=== PATIENT | female | born 1970 | race Caucasian/White ===

== ENCOUNTER 2017-10-18 01:59 | Emergency (ER) | payer OTHER ==
--- NOTE | 2017-10-18 02:09 | ED Physician Documentation ---
History of Present Illness - Stated complaint Stated Complaint: CHEST PX - History obtained from History obtained from: Patient - Additonal information Additional information: 47-year-old female presents the emergency department with complaints of sharp intermittent chest pain for the past several weeks. The patient reports increasing episodes over the past several days. The patient reports a sharp pain that last no longer than 1 minute and occasionally radiates into her arm. The patient denies diaphoresis or nausea. The patient denies dyspnea on exertion, URI symptoms, fever cough. No new injury. Currently, the patient has no active symptoms. The patient denies abdominal pain. Symptoms are described as moderate when they occur and currently has no pain. No triggering factors. 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 10/30/14 Solifenacin Succinate [Vesicare] 10/30/14 10/30/14 - Allergies Allergies/Adverse Reactions: Allergies Allergy/AdvReac Type Severity Reaction Status Date / Time Sulfa (Sulfonamide Allergy Hives Verified 06/05/15 11:41 Antibiotics) tetracycline [Tetracycline] Allergy dizzy Verified 07/15/14 11:41 - Social History Does the pt smoke?: No Smoking Status: Former smoker Does the pt drink ETOH?: No Does the pt have substance abuse?: No - Immunizations Immunizations are current?: Yes PD ED PE NORMAL - General General: Alert and oriented X 3, No acute distress - HEENT HEENT: Atraumatic, PERRL, EOMI, Ears normal - Neck Neck: No JVD - Cardiac Cardiac: RRR - Respiratory Respiratory: No respiratory distress, Clear bilaterally - Abdomen Abdomen: Soft, Non tender, Non distended - Derm Derm: Normal color - Extremities Extremities: No deformity, No edema - Neuro Neuro: Alert and oriented X 3, No motor deficit - Psych Psych: Normal mood Results - Vitals Vitals: Vital Signs - 24 hr 10/18/17 10/18/17 10/18/17 02:05 02:24 02:36 Temperature 37.1 C Heart Rate 84 90 Respiratory 18 16 16 Rate Blood Pressure 148/93 H 148/93 H O2 Saturation 98 99 10/18/17 10/18/17 10/18/17 02:37 03:18 03:34 Temperature Heart Rate 84 81 Respiratory 16 17 16 Rate Blood Pressure 121/78 118/80 O2 Saturation 98 97 10/18/17 10/18/17 10/18/17 04:22 04:35 05:18 Temperature Heart Rate 75 82 79 Respiratory 14 16 14 Rate Blood Pressure 111/83 H 109/78 O2 Saturation 98 98 98 Oxygen O2 Source Room air - EKG (time done) 02:06 Rate: Rate (enter#) Rhythm: NSR Intervals: Normal CO, QRS normal Ischemia: Normal ST segments - Labs Labs: Laboratory Tests 10/18/17 10/18/17 10/18/17 02:10 02:10 02:10 WBC 7.3 RBC 4.83 Hgb 15.3 Hct 43.6 MCV 90.2 MCH 31.6 H MCHC 35.0 RDW 12.8 Plt Count 238 MPV 8.2 Neut # (Auto) 3.7 Lymph # (Auto) 2.9 [place] # (Auto) 0.5 Eos # (Auto) 0.1 Baso # (Auto) 0.1 Absolute Nucleated RBC 0.00 Nucleated RBC % 0.0 D-Dimer Sodium 139 Potassium 3.4 L Chloride 103 Carbon Dioxide 27 Anion Gap 9.0 BUN 15 Creatinine 0.9 Estimated GFR (MDRD) 67 L Glucose 100 Calcium 9.0 Total Bilirubin 0.6 AST 26 ALT 26 Alkaline Phosphatase 65 Troponin I < 0.04 Total Protein 7.3 Albumin 4.4 Globulin 2.9 Albumin/Globulin Ratio 1.5 Lipase 42 10/18/17 10/18/17 02:10 05:55 WBC RBC Hgb Hct MCV MCH MCHC RDW Plt Count MPV Neut # (Auto) Lymph # (Auto) [place] # (Auto) Eos # (Auto) Baso # (Auto) Absolute Nucleated RBC Nucleated RBC % D-Dimer 128.6 L Sodium Potassium Chloride Carbon Dioxide Anion Gap BUN Creatinine Estimated GFR (MDRD) Glucose Calcium Total Bilirubin AST ALT Alkaline Phosphatase Troponin I < 0.04 Total Protein Albumin Globulin Albumin/Globulin Ratio Lipase - Rads (name of study) CXR Radiology: Final report received (1. No acute abnormality seen in the chest. ) PD MEDICAL DECISION MAKING - ED course ED course: The case was discussed with the hospitalist, unfortunately our facility is unable to perform a stress test over the weekend. I discussed this with the patient and she is already been in contact with her primary care last week and is in the process of getting set up for a stress test. The patient is in the low risk category per the heart score so she appears appropriate for discharge and ongoing outpatient management. The patient's workup in the emergency department does not reveal a clear etiology for the source of her symptoms. The patient is comfortable with this plan for outpatient workup. I discussed warning signs and recommended returning to the emergency department immediately for worsening or any concerns. - Sepsis Event Vital Signs: Vital Signs - 24 hr 10/18/17 10/18/17 10/18/17 02:05 02:24 02:36 Temperature 37.1 C Heart Rate 84 90 Respiratory 18 16 16 Rate Blood Pressure 148/93 H 148/93 H O2 Saturation 98 99 10/18/17 10/18/17 10/18/17 02:37 03:18 03:34 Temperature Heart Rate 84 81 Respiratory 16 17 16 Rate Blood Pressure 121/78 118/80 O2 Saturation 98 97 10/18/17 10/18/17 10/18/17 04:22 04:35 05:18 Temperature Heart Rate 75 82 79 Respiratory 14 16 14 Rate Blood Pressure 111/83 H 109/78 O2 Saturation 98 98 98 Oxygen O2 Source Room air Departure - Departure Disposition: Home, Self Care Clinical Impression: Chest pain Qualifiers: Chest pain type: unspecified Qualified Code(s): R07.9 - Chest pain, unspecified Condition: Good Instructions: ED Chest Pain [facility] Follow-Up: Boby García MD [Primary Care Provider] - (Please follow-up with your primary care physician on Friday. Please ask your primary care physician to arrange for an outpatient stress test and echocardiogram.) Comments: Please return to the emergency department immediately for worsening symptoms or any concerns
[2017-10-18 02:20] LABS: BASOPHILS # (AUTO) 0.1 10^3/uL (0.0-0.1); EOSINOPHILS # (AUTO) 0.1 10^3/uL (0.0-0.7); EOSINOPHILS % (AUTO) 1.8 %; HGB - HEMOGLOBIN 15.3 g/dL (12.0-16.0); LYMPHOCYTES # (AUTO) 2.9 10^3/uL (1.5-3.5); LYMPHOCYTES % (AUTO) 39.7 %; MEAN CORPUSCULAR HEMOGLOBIN 31.6 pg (27.0-31.0); MEAN CORPUSCULAR VOLUME 90.2 fL (81.0-99.0); MEAN PLATELET VOLUME 8.2 fL (7.9-10.8); MONOCYTES # (AUTO) 0.5 10^3/uL (0.0-1.0); MONOCYTES % (AUTO) 6.7 %; NEUTROPHILS # (AUTO) 3.7 10^3/uL (1.5-6.6); NEUTROPHILS % (AUTO) 50.8 %; PLT - PLATELET COUNT 238 10^3/uL (130-450); RED BLOOD COUNT 4.83 10^6/uL (4.20-5.40); RED CELL DISTRIBUTION WIDTH 12.8 % (12.0-15.0); WHITE BLOOD COUNT 7.3 x10^3/uL (4.8-10.8)
[2017-10-18 02:32] LABS: ALBUMIN 4.4 g/dL (3.2-5.5); ALBUMIN/GLOBULIN RATIO 1.5 (1.0-2.2); BILIRUBIN,TOTAL 0.6 mg/dL (0.2-1.0); CREATININE 0.9 mg/dL (0.4-1.0); TOTAL PROTEIN 7.3 g/dL (6.7-8.2)
--- NOTE | 2017-10-18 03:39 | XRAY Report ---
Reason: CP Procedure Date: 10/18/2017 Accession Number: [id number] / [id number] Procedure: XR - Chest 2 View X-Ray CPT Code: 50180 FULL RESULT: EXAM: CHEST RADIOGRAPHY EXAM DATE: 10/18/2017 03:10 AM. CLINICAL HISTORY: Chest pain. COMPARISON: 06/24/2014. TECHNIQUE: 2 views. FINDINGS: Lungs/Pleura: No alveolar consolidation or pleural effusion seen. No pneumothorax. Mediastinum: Heart and mediastinal contours are unremarkable. Other: Mild thoracolumbar scoliosis. IMPRESSION: 1. No acute abnormality seen in the chest. RADIA
[2017-10-18 06:27] VITALS: BP 109/74
== END 2017-10-18 06:27 | disposition home or self-care (01) ==
LOC: ED 01:59
DX: R07.9 Chest pain, unspecified (principal); Z87.891 Personal history of nicotine dependence
CPT/HCPCS: 36415; 71046; 80053; 83690; 84484; 85025; 85379; 93005; 99283; 99284

== ENCOUNTER 2020-04-12 14:55 | Outpatient (CLI) | payer OTHER ==
--- NOTE | 2020-04-13 09:07 | Ultrasound Report ---
PROCEDURE: Carotid Doppler Complete INDICATIONS: HYPERLIPIDEMIA, SYNCOPE AND COLLAPSE TECHNIQUE: Color and pulse Doppler interrogation was performed of both carotid systems, with image documentation and velocity measurements. COMPARISON: 06/15/2010 FINDINGS: Right side: Brachial blood pressure: 117/65 mm Hg. Common carotid artery peak systolic velocity: 19.6 cm/sec. Internal carotid artery peak systolic velocity: 8 cm/sec. Internal carotid artery end diastolic velocity: 26.9 cm/sec. External carotid artery peak systolic velocity: 69.2 cm/sec. ICA/CCA peak systolic ratio: 0.7 . Cameron scale imaging description: Minimal plaque at the bifurcation and origin of the internal carotid artery Percent internal carotid artery stenosis: Minimal. Vertebral artery: Flow direction is antegrade. Left side: Brachial blood pressure: 113/73 mm Hg. Common carotid artery peak systolic velocity: 86.0 cm/sec. Internal carotid artery peak systolic velocity: 79.6 cm/sec. Internal carotid artery end diastolic velocity: 26.5 cm/sec. External carotid artery peak systolic velocity: 88.8 cm/sec. ICA/CCA peak systolic ratio: 0.9 . Cameron scale imaging description: Minimal plaque in the bifurcation and origin of the internal carotid artery Percent internal carotid artery stenosis: Minimal. Vertebral artery: Flow direction is antegrade. IMPRESSION: Minimal atherosclerotic plaque at the carotid bifurcations. No hemodynamically significant stenosis. No significant progression compared with prior study. The estimate of stenosis included in the report of the imaging study was calculated using the NASCET method Reviewed by: Bereket Mendez MD on 04/13/2020 9:05 AM PST Approved by: Bereket Mendez MD on 04/13/2020 9:05 AM PST Station ID: [id number]
== END 2020-04-12 14:56 | disposition home or self-care (01) ==
LOC: DI 14:55
PROVIDERS: ATTEND Internal Medicine
DX: R55 Syncope and collapse (principal); E78.5 Hyperlipidemia, unspecified
CPT/HCPCS: 93880

== ENCOUNTER 2022-09-19 16:55 | Outpatient (CLI) | payer OTHER | END 2022-09-19 16:56 | disposition short-term general hospital (02) | LOC: EMS 16:55 | DX: M54.50 Low back pain, unspecified (principal); V49.50XA Passenger injured in collision with unspecified motor vehicles in traffic accident, initial encounter; Y92.413 State road as the place of occurrence of the external cause | CPT/HCPCS: A0425; A0429 ==

== ENCOUNTER 2022-12-19 14:44 | Outpatient (CLI) | payer OTHER | END 2022-12-19 14:45 | disposition home or self-care (01) | LOC: LAB 14:44 | PROVIDERS: ATTEND Nurse Practitioner | DX: N95.1 Menopausal and female climacteric states (principal); R23.2 Flushing | CPT/HCPCS: 36415; 83001; 83002 ==

== ENCOUNTER 2023-02-14 13:14 | Outpatient (CLI) | payer OTHER | END 2023-02-14 13:15 | disposition home or self-care (01) | LOC: LAB 13:14 | PROVIDERS: ATTEND Nurse Practitioner | DX: R53.83 Other fatigue (principal); M79.606 Pain in leg, unspecified | CPT/HCPCS: 36415; 84443; 85379 ==

== ENCOUNTER 2023-02-19 15:05 | Outpatient (CLI) | payer OTHER ==
[2023-02-19 17:53] LABS: BASOPHILS # (AUTO) 0.1 10^3/uL (0.0-0.1); EOSINOPHILS # (AUTO) 0.1 10^3/uL (0.0-0.7); EOSINOPHILS % (AUTO) 1.5 %; HCT - HEMATOCRIT 44.7 % (37.0-47.0); HGB - HEMOGLOBIN 14.7 g/dL (12.0-16.0); LYMPHOCYTES # (AUTO) 1.6 10^3/uL (1.5-3.5); LYMPHOCYTES % (AUTO) 29.8 %; MEAN CORPUSCULAR HEMOGLOBIN 30.4 pg (27.0-31.0); MEAN CORPUSCULAR HGB CONC 32.9 g/dL (32.0-36.0); MEAN CORPUSCULAR VOLUME 92.4 fL (81.0-99.0); MEAN PLATELET VOLUME 10.9 fL (7.9-10.8); MONOCYTES # (AUTO) 0.5 10^3/uL (0.0-1.0); MONOCYTES % (AUTO) 10.4 %; NEUTROPHILS % (AUTO) 56.7 %; PLT - PLATELET COUNT 285 10^3/uL (130-450); RED BLOOD COUNT 4.84 10^6/uL (4.20-5.40); RED CELL DISTRIBUTION WIDTH 12.5 % (12.0-15.0); WHITE BLOOD COUNT 5.2 x10^3/uL (4.8-10.8)
== END 2023-02-19 15:06 | disposition home or self-care (01) ==
LOC: LAB.N 15:05
PROVIDERS: ATTEND Nurse Practitioner
DX: R53.83 Other fatigue (principal)
CPT/HCPCS: 36415; 82306; 82728; 85025